=== PATIENT | male | born 1955 ===

== ENCOUNTER 2024-12-19 12:30 | Outpatient (RCR) | payer OTHER, SELFPAY ==
--- NOTE | 2024-11-12 12:29 | OPREHPOC ---
Outpatient Therapy Plan of Care This is a Multidisciplinary Plan of Care that may contain components documented by all disciplines (PT, OT, and ST.) PT Problem 1 PT Problem #1 Knowledge Deficit PT Goal 1 Goal / Goal Update 1. Patient to demonstrate independence with HEP for improved self-reliance of symptom management. Target Visit 3 PT Problem 2 PT Problem #2 Pain PT Goal 1 Goal / Goal Update 1. Patient to decrease subjective reports of pain to <2/10 for improved ADL tolerance. 2. Patient will score </=25% disability on the [employer] to demonstrate meaningful improvement in patient's quality of life. Target Visit 12 PT Problem 3 PT Problem #3 Impaired Range of Motion PT Goal 1 Goal / Goal Update 1. Pt to demonstrate an increase of R shoulder AROM to >=130 deg to improve the ability to reach overhead. 2. Pt to demonstrate an increase of R shoulder ER/ IR functional reach to to improve the ability to perform personal hygiene tasks.
--- NOTE | 2024-11-12 12:30 | PTOPEVAL1 ---
Assessment and note entered by Axel Garcia PT Evaluation Information Assessment Status Evaluation Diagnosis R rTSA ICD-10 Condition Codes (PT) Pain in right shoulder M25.511 Onset 10/24/24 Subjective Information Pt had R TSA on 10/24/24. Pt states he has been wearing his sling most of the day and always when in public. Pt states he is sleeping well and independent with all ADLs. Pt saw surgeon on and received his script from physical therapy. Pt states his next follow up with the surgeon is on 12-04. Reported Pain Level Pain Score 3: Self Report Assessment PT Clinical Summary Pt present follow a R rTSA on 10/24/[address] Fam . Pt displays post surgical deficits in ROM, strength all limiting functional use of RUE. Pt requires skilled physical therapy to address deficits and manage post surgical precautions and advance interventions as tolerated. Plan of Care Interventions Electrical Stimulation,Hot Pack/Cold Pack,Manual Therapy,Neuro Re-education,Therapeutic Activities, Therapeutic Exercise,Other PT Services Indicated Yes Treatment Frequency and 2x week 12 visits Duration These treatments will address the objective and functional deficits as defined above. The patient will be advanced safely and appropriately in order for the patient to progress towards his/her prior level of function. Additional exercises will be introduced and as well as a comprehensive home exercise program upon discharge, if needed, ?to ensure carryover of functional gains achieved in the clinic. This treatment plan has been reviewed and agreement upon by the patient.
--- NOTE | 2024-12-19 13:15 | PTOPDC ---
Assessment and note entered by Axel Garcia PT Evaluation Information Assessment Status Discharge Diagnosis R rTSA ICD-10 Condition Codes (PT) Pain in right shoulder M25.511 Onset 10/24/24 Subjective Information Pt had R TSA on 10/24/24 he states he feels he is recovering well. He notes he has minimal pain and is able to move is arm better each day. Pt states he spoke with surgeon and would like to be discharged as he is moving back to [place] and will finish any needed rehab out there. Reported Pain Level Pain Score 0: Self Report Assessment PT Clinical Summary Patient's R shoulder has improved overall as evidenced by advancements in mobility, strength, and overall functional use of the extremity. Patient has met therapy goals and is pleased with progress made towards the remaining goals. Patient to discharge from physical therapy this date and continue with updated home exercise program as instructed. Patient to contact physical therapist or primary care provider if questions or concerns arise. Plan of Care PT Services Indicated No
== END 2024-12-19 15:33 | disposition home or self-care (01) ==
LOC: ANHGOSHPT 12:30
PROVIDERS: PCP Family Medicine
DX: Z47.1 Aftercare following joint replacement surgery (principal); Z48.89 Encounter for other specified surgical aftercare; Z96.611 Presence of right artificial shoulder joint
CPT/HCPCS: 97110; 97112; 97140; 97161; 97530